=== PATIENT | female | born 1990 | race Caucasian/White ===

== ENCOUNTER 2025-01-02 14:21 | Outpatient (AMB) | payer OTHER, SELFPAY ==
--- NOTE | 2025-01-02 14:22 | A.OFFPC_ITS ---
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 she will like a STI and lab work. 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 Accompanied by: Self / Same As Patient Allergies No Known Allergies Allergy (Verified 01/02/25 14:23) Tobacco use date assessed: 01/02/25 Dental Screening Dental Screen Date: 01/02/25 Did you have a dental visit in the last 12 months?: Yes Did you have a dental problem in the last 6 months where you did not have access to dental care?: No Was dental information given to patient?: Patient has dentist HPI HPI Comments 2 History of Present Illness0 Details 34-year-old female comes in to establish care she works at her [employer] She has no acute complaints she suffers from anxiety she used to take alprazolam 0.5 mg last time she took the medication was in March of 2024 Mass pat was reviewed which showed evidence of medication usage As per patient she saw a psychiatrist and received CBT she is interested in starting therapy again We discussed trialing a SSRI for her anxiety patient is amendable to trial discussed bridging over with benzodiazepine She denies suicidal ideation or attempt and homicidal ideation and attempt She is a single parent and feels that she has a large load on her shoulders She also complains of feeling a mass on her upper back, discuss obtaining an ultrasound of soft tissue patient agrees She wants to check her thyroid hormone since she verbalizes that it was abnormal on her last exam but her primary care doctor never addressed it She does say she feels tired constipated cold, will order TSH reflex to T4 and discuss results and plan when the time comes She is sexually active and requests a STI screen She has a history of smoking she smokes 6 cigarettes a day She is interested in quitting we discussed starting the patch and using gum whenever she gets cravings She agrees with the plan She also mentioned she had a Pap smear 2 years ago she is not sure if she has to repeat in 2 or 5 years [facility] Family History (Updated 01/02/25 @ 14:34 by Liam Ocasio MA) Father No problems noted. Mother High blood pressure Fibromyalgia Hypothyroidism Social History Housing: Apartment Alcohol intake: current Alcohol intake frequency: holidays/special occasions only Patient Tobacco Use Status: Current everyday Tobacco user Tobacco use type: Cigarette Cigarettes Per Day: 6 service: No Current occupational status: employed Cognitive needs: No Hearing needs: No Vision needs: No Questionnaire PHQ-9 Over the last 2 weeks, how often have you been bothered by any of the following problems? 1. Little interest or pleasure in doing things: more than half the days 2. Feeling down, depressed, or hopeless: several days 3. Trouble falling or staying asleep, or sleeping too much: nearly every day 4. Feeling tired or having little energy: more than half the days 5. Poor appetite or overeating: several days 6. Feeling bad about yourself - or that you are a failure or have let yourself or your family down: several days 7. Trouble concentrating on things, such as reading the newspaper or watching television: nearly every day 8. Moving or speaking so slowly that other people could have noticed. Or the opposite - being so fidgety or restless that you have been moving around a lot more than usual: several days 9. Thoughts that you would be better off or of hurting yourself in some way: not at all Total score: 14 Depression Screening Interpretation: Positive Depression Screening Done: Yes 30813 - PHQ-9 Billing: Yes Source: Developed by Drs. Raj Monzon, Aan Hernandez, Angel Gibson and colleagues, with an educational giuseppe from [employer]. Thrive Questionnaire Date Thrive assessed: 01/02/25 I am a: Patient What is your living situation today?: I have a steady place to live Within the past 12 months, did the food you bought not last and you didn't have the money to get more?: Never true Within the past 12 months, did you worry whether your food would run out before you got money to buy more?: Never true Do you have trouble paying for medicines?: No Do you have trouble getting transportation to medical appointments?: No Do you have trouble paying your heating and electricity bill?: No Do you have trouble taking care of your child, family member or friend?: No Do you have trouble with day-to-day activities such as bathing, preparing meals, shopping, managing finances, etc.?: No Are you currently unemployed and looking for a job?: No Are you interested in more education?: No Please select the resources that you would like help with: None Currently or been in a relationship where the following occur: No concerns reported THRIVE Score: 0 AUDIT C Alcohol Use Questionnaire (AUDIT-C) 1. How often do you have a drink containing alcohol?: Monthly or less 2. How many drinks containing alcohol do you have on a typical day when you are drinking?: 1 or 2 3. How often do you have six or more drinks on one occasion?: Never Total Score: 1 BERT-7 AMB Questionnaire BERT-7 Date BERT - 7 assessed: 01/02/25 Feeling nervous, anxious, or on edge: 3 = Nearly every day Not being able to stop or control worryin = Nearly every day Worrying too much about different things: 3 = Nearly every day Trouble relaxin = More than half the days Being so restless that it is hard to sit still: 3 = Nearly every day Becoming easily annoyed or irritable: 3 = Nearly every day Feeling afraid as if something awful might happen: 3 = Nearly every day Total BERT-7 score (0-4 normal; 5-9 mild; 10-14 moderate; 15-21 severe): 20 Source: Developed by Drs. Raj Monzon, Ana Hernandez, Angel Gibson and colleagues, with an educational giuseppe from [employer] Review of Systems Const Details: 10-point ROS reviewed and negative except as noted in HPI. Physical exam (Primary Care) 25.3 BMI Assessment/Plan discussion: High Tobacco/Smoking Status: Tobacco use Status Tobacco use date assessed 01/02/25 01/02/25 14:26 Patient Tobacco Use Status Never used Tobacco 01/02/25 14:26 Are you ready to quit: Yes Tobacco cessation counseling provided: Yes Relapse Prevention: discussed the importance of a supportive environment, discussed negative mood or depression after quitting, weight gain after smoking is common and discussed dietary, exercise and/or lifestyle changes Number of minutes spent counselin CPT code: 09174 - 4-10 Minutes PHQ-9: PHQ-9 Score PHQ-9: Total score 0 01/02/25 14:26 Depression Screening Interpretation: Positive Thrive Assessment: Date of Thrive Assessment Date Thrive assessed 01/02/25 01/02/25 14:26 Currently or been in a relationship where the following occur: No concerns reported Const Other: * Gen: NAD, A&O x3 * HEENT: NC/AT, PERRLA, EOMI, OP clear, MMM * Neck: Supple, no LAD/JVD/bruit * COR: RRR, S1 S2, no m/r/g * Lungs: CTAB, BS equal bilat, no r/r/w * Abd: NT/ND, +BS, no HSM, no mass/rebound/guarding * Ext: No CCE, 2+ pulses * Neuro: CN II?XII grossly intact, motor/sensory intact, reflexes 2+, gait normal * Skin: WDI, no rash mass on upper back 1x1cm Back/Spine/Pelvis Back/spine/pelvis image: 2 1. Coding Level of Care Code New Pt Level 3 (31696) Diagnoses Regular check-up Z00.00 Routine lab draw Z01.89 Screening for diabetes mellitus Z13.1 Encounter for screening, unspecified Z13.9 Other specified counseling Z. Exercise counseling Z71.82 Nicotine dependence F17.200 Moderate major depression F32.1 Excess ear wax H61.20 Mass on back R22.2 Additional Codes PHQ-9 - 11609 - PHQ-9 Billing: Yes ([id number]) Vital Signs *Quality* - CPT code: 46747 - 4-10 Minutes ([id number]) Assessment & Plan Assessment & Plan (1) Regular check-up: Code(s): Z00.00 - Encounter for general adult medical examination without abnormal findings (2) Routine lab draw: Code(s): Z01.89 - Encounter for other specified special examinations (3) Screening for diabetes mellitus: Code(s): Z13.1 - Encounter for screening for diabetes mellitus (4) Encounter for screening, unspecified: Code(s): Z13.9 - Encounter for screening, unspecified (5) Other specified counseling: Code(s): Z71.89 - Other specified counseling (6) Exercise counseling: Code(s): Z71.82 - Exercise counseling (7) Nicotine dependence: Code(s): F17.200 - Nicotine dependence, unspecified, uncomplicated Category: Medical (8) Moderate major depression: Code(s): F32.1 - Major depressive disorder, single episode, moderate Category: Medical (9) Excess ear wax: Code(s): H61.20 - Impacted cerumen, unspecified ear (10) Mass on back: Code(s): R22.2 - Localized swelling, mass and lump, trunk Plan routine labs for screening major depression no risk of si/sa or hi/rodriguez will start escitalopram 10mg and bridge c benzodiazepine rtc in 2 weeks for f/u, [facility] referral ordered mass on upper back--> us soft tissue , most likely lipoma cerumen in bilat ears -->debrox and hygiene instructions provided 4 min nicotine dep--> start nicotine patch with gum Smoking Cessation Counseling ? Provided smoking cessation counseling (5 minutes). Reviewed health risks (CV, pulmonary, cancer) and benefits of quitting. * Assessed readiness: patient ready * Discussed options: behavioral strategies (quit date, trigger avoidance, support resources) and pharmacotherapy (NRT, bupropion, varenicline). * Offered quitline: [phone]. Patient accepted quit plan; follow-up arranged. Orders: Orders 2 Complete Blood Count Auto Diff Today Z00.00 - Encounter for general adult medical examination without abnormal findings, Z13.1 - Encounter for screening for diabetes mellitus, Z13.9 - Encounter for screening, unspecified Comprehensive Met. Panel Today Z00.00 - Encounter for general adult medical examination without abnormal findings, Z13.1 - Encounter for screening for diabetes mellitus, Z13.9 - Encounter for screening, unspecified Lipid Panel Today Z00.00 - Encounter for general adult medical examination without abnormal findings, Z13.1 - Encounter for screening for diabetes mellitus, Z13.9 - Encounter for screening, unspecified Chlamydia Species Ab Panel Today Z00.00 - Encounter for general adult medical examination without abnormal findings, Z13.1 - Encounter for screening for diabetes mellitus HIV Ab/Ag Today Z00.00 - Encounter for general adult medical examination without abnormal findings, Z13.1 - Encounter for screening for diabetes mellitus Hepatitis B Surface Antigen Today Z00.00 - Encounter for general adult medical examination without abnormal findings, Z13.1 - Encounter for screening for diabetes mellitus US chest Today R22.2 - Localized swelling, mass and lump, trunk, Z00.00 - Encounter for general adult medical examination without abnormal findings, Z13.1 - Encounter for screening for diabetes mellitus Hemoglobin A1c Today Z00.00 - Encounter for general adult medical examination without abnormal findings, Z13.1 - Encounter for screening for diabetes mellitus, Z13.9 - Encounter for screening, unspecified TSH reflex Free T4 Today Z00.00 - Encounter for general adult medical examination without abnormal findings, Z13.1 - Encounter for screening for diabetes mellitus, Z13.9 - Encounter for screening, unspecified CT NG by PCR Urine Today Z00.00 - Encounter for general adult medical examination without abnormal findings, Z13.1 - Encounter for screening for diabetes mellitus Hepatitis C Antibody Today Z00.00 - Encounter for general adult medical examination without abnormal findings, Z13.1 - Encounter for screening for diabetes mellitus Hepatitis B Surface Antibody Today Z00.00 - Encounter for general adult medical examination without abnormal findings, Z13.1 - Encounter for screening for diabetes mellitus Referrals 2 Behavioral Health Referral Z00.00 - Encounter for general adult medical examination without abnormal findings, Z13.1 - Encounter for screening for diabetes mellitus Medications: New 2 escitalopram oxalate 10 mg PO DAILY 30 tabs 0RF alprazolam 0.5 mg PO DAILY 10 tabs 0RF anxiety nicotine 1 patch transdermal Q24H 14 ea 4RF nicotine (polacrilex) 2 mg buccal Q2H 20 ea 0RF carbamide peroxide 6.5% (Debrox) 5 drps otic (ears) Q12H 15 mL 0RF 4 days
[2025-01-02 14:38] VITALS: BP 98/68; PULSE 84; RESP 16; TEMP 36.6; O2SAT 97; BMI 25.3
--- OUTSIDE RECORDS SUMMARY | 2025-01-02 15:41 | XMS_ITS | Patient Health Record ---
Author Organization [employer] Address [address] [place], [place] [phone] Support Name Relationship Address Phone FINN VICK Guarantor Unknown Unavailable Reason For Referral No Information Plan Of Treatment No Information Insurance Providers Payer Name Payer Address Payer Phone Subscriber Number Group Number Insured Name Patient Relationship to Insured Coverage Start Date Coverage End Date [facility] and [facility] [address] [place], [place] [id number] NAVA FINN Self - patient is the insured
== END 2025-01-02 15:24 | disposition home or self-care (01) ==
LOC: HO.HMCFMS 14:21
PROVIDERS: PCP Student in an Organized Health Care Education/Training Program; Visit Provider Student in an Organized Health Care Education/Training Program
DX: Z00.00 Encounter for general adult medical examination without abnormal findings (principal); R22.2 Localized swelling, mass and lump, trunk; H61.23 Impacted cerumen, bilateral; F32.1 Major depressive disorder, single episode, moderate; F17.200 Nicotine dependence, unspecified, uncomplicated; Z13.1 Encounter for screening for diabetes mellitus; Z13.9 Encounter for screening, unspecified; Z71.89 Other specified counseling; Z71.82 Exercise counseling

== ENCOUNTER → 2025-01-02 14:21 | Outpatient (BNVA) | payer MEDICARE, SELFPAY | PROVIDERS: Visit Provider Student in an Organized Health Care Education/Training Program | DX: Z00.00 Encounter for general adult medical examination without abnormal findings (principal); F32.1 Major depressive disorder, single episode, moderate; H61.20 Impacted cerumen, unspecified ear; R22.2 Localized swelling, mass and lump, trunk; F41.9 Anxiety disorder, unspecified; F17.210 Nicotine dependence, cigarettes, uncomplicated; Z79.899 Other long term (current) drug therapy; Z13.31 Encounter for screening for depression; Z13.39 Encounter for screening examination for other mental health and behavioral disorders; Z71.82 Exercise counseling | CPT/HCPCS: 96127; 99385 ==

== ENCOUNTER 2025-01-03 07:32 | Outpatient (REF) | payer MEDICARE, SELFPAY ==
--- OUTSIDE RECORDS SUMMARY | 2019-07-14 20:00 | XMS_ITS | Continuity of Care Document ---
Author Organization [facility] As sociates Address [address] [place] [address] Phone Care Team Providers Care Residential Counselor Name Role Phone MD LARSEN JEFFREY Unavailable Unavailable Advance Directives Directive Yes / No Effective Date File Name No Information Encounters Encounter Description Practice Location Reason(s) For Visit Diagnoses Date Provider Providers Copied on Encounter [facility], [address], [place], [place], [id number], [place] tel:[phone] [facility] OUTPATIENT No Information MD GAVIOTA LARSEN. [address], [place], [place], [id number] , [place]. tel:[phone] Referring Provider: SILVIA FRANCO, [address] [place] [address], [address]. tel:[phone] Family History Family Member Type Diagnosis Age At Onset No Information Payers Payer name Insurance type Covered democrat ID Authoriza tilisa(s) [facility] [id number] [facility] [id number] Social History Type Description Quantity Date Captured Comments Sex Female Smoking Status No Information Chief Complaint And Reason For Visit No Information History Of Present Illness Encounter Date Complaint History Of Prese nt Illness No Information Instructions Date Instruction Additional Infor mation No Information Assessments Type Assessment Date No Information
--- OUTSIDE RECORDS SUMMARY | 2025-01-03 07:34 | XMS_ITS | Patient Health Record ---
Author Organization [employer] Address [address] [place], [place] [id number] Support Name Relationship Address Phone FINN VICK Guarantor Unknown Unavailable Reason For Referral No Information Plan Of Treatment No Information Insurance Providers Payer Name Payer Address Payer Phone Subscriber Number Group Number Insured Name Patient Relationship to Insured Coverage Start Date Coverage End Date [facility] and [facility] [address] [place], [place] [id number] [phone] [id number] NAVA FINN Self - patient is the insured
[2025-01-03 10:50] LABS: MANUAL DIFF FLAG NO
[2025-01-03 10:56] LABS: Hematocrit 40.1 % (37.0-47.0); Hemoglobin 13.1 g/dl (12.0-16.0); Imm Gran Abs Auto 0.02 X10*3/uL (0.00-0.03); Imm Gran Pct Auto 0.3 % (0.0-0.4); Lymphocytes Absolute Auto 2.1 X10*3/uL (1.2-4.9); Mean Corpuscular HGB Conc 32.7 g/dl (31.0-35.0); Mean Corpuscular Hemoglobin 29.7 pg (27.0-33.0); Mean Corpuscular Volume 90.9 fL (80.0-98.0); NRBC Abs Auto 0.000 X10*3/uL (0.0-0.012); NRBC Pct Auto 0.0 /100WBC (0.0-0.2); Platelet Count 250 X10*3/uL (160-400); Red Blood Count 4.41 X10*6/uL (4.20-5.50); White Blood Count 7.8 X10*3/uL (4.8-10.8)
[2025-01-03 11:06] LABS: Hemoglobin A1C 121.3026 umol/L; Total Hemoglobin (HGBA1C) 3337.1833 umol/L
[2025-01-03 11:10] LABS: Alanine Aminotransferase 23 U/L (0-31); Albumin Level 4.4 g/dL (3.5-5.0); Alkaline Phosphatase 69 U/L (39-117); Anion Gap 11 (12-20); Aspartate Amino Transferase 22 U/L (5-31); Blood Urea Nitrogen 20 mg/dL (9-16); Calcium 8.7 mg/dL (8.4-10.2); Carbon Dioxide 25 mmol/L (22-29); Chloride 106 mmol/L (96-108); Cholesterol 192 mg/dL (<200); Estimated Glomerular Filt Rate > 60; HDL Cholesterol 55 mg/dL (>40); Potassium 4.3 mmol/L (3.3-5.1); Sodium 138 mmol/L (135-145); Total Protein 7.2 g/dL (6.5-8.0); Triglycerides 71 mg/dL (<150)
[2025-01-03 11:41] LABS: HBS Num1 > 1000.00 mIU/mL (0-7.99); HBsAGNum1 0.35 S/CO (0.00-0.99); HIV Num 1 0.06 S/CO (0.00-0.99); Hepatitis B Surface Antigen Negative (Negative); ~HepC Num1 0.12 S/CO (0.00-0.79); ~Hepatitis B Surface Antibody REACTIVE (Nonreactive); ~Hepatitis C Antibody Nonreactive (Nonreactive)
[2025-01-03 12:34] LABS: CT PCR Urine NOT DETECTED (Not Detect.); NG PCR Urine NOT DETECTED (Not Detect.)
[2025-01-11 12:13] LABS: Chlamydia Trachomatis IgA <1:16 titer (<1:16); Chlamydia Trachomatis Interp. Past Infection
== END 2025-01-03 07:33 | disposition home or self-care (01) ==
LOC: HO.10HDL 07:32
PROVIDERS: Visit Provider Student in an Organized Health Care Education/Training Program
DX: Z00.00 Encounter for general adult medical examination without abnormal findings (principal); Z13.1 Encounter for screening for diabetes mellitus; Z13.6 Encounter for screening for cardiovascular disorders; Z20.2 Contact with and (suspected) exposure to infections with a predominantly sexual mode of transmission
CPT/HCPCS: 80053; 80061; 83036; 84443; 85025; 86631; 86632; 86706; 86803; 87340; 87389; 87491; 87591

== ENCOUNTER 2025-01-15 15:51 | Outpatient (REF) | payer OTHER, SELFPAY ==
--- NOTE | ~2025-01-15 | US_ITS ---
EXAMINATION: US CHEST CLINICAL INFORMATION: Localized mass or swelling involving the upper back COMPARISON: None available. TECHNIQUE: Grayscale and color Doppler imaging was performed in the region of the mass in the posterior mid back FINDINGS: There is a well-defined mass in the superficial subcutaneous soft tissues of the posterior mid thigh, left that measures 16 x 9 x 12 mm (CC by AP by transverse). Margins are not clearly differentiated from subcutaneous lobulations of adipose tissue. The cephalad margin is more distinct. The mass is possibly as large as 25 x 10 x12 mm. On longitudinal imaging, the region appears more masslike, but on transverse imaging it is ill-defined. US/US chest IMPRESSION: Possible mass in the posterior left upper back. Ultrasound is inadequate for characterizing soft tissue masses outside of the breast. The standard imaging modality for characterizing musculoskeletal masses is MRI. Electronically signed by: Obie Garza MD 01/15/2025 05:14 PM EDT
--- OUTSIDE RECORDS SUMMARY | 2025-01-15 19:08 | XMS_ITS | Patient Health Record ---
Author Organization [employer] Address [address] [place], [place] [phone] Support Name Relationship Address Phone FINN VICK Guarantor Unknown Unavailable Reason For Referral No Information Plan Of Treatment No Information Insurance Providers Payer Name Payer Address Payer Phone Subscriber Number Group Number Insured Name Patient Relationship to Insured Coverage Start Date Coverage End Date [facility] and [facility] [address] [place], [place] [phone] [id number] NAVA FINN Self - patient is the insured
== END 2025-01-15 15:52 | disposition home or self-care (01) ==
LOC: HO.US 15:51
PROVIDERS: PCP Student in an Organized Health Care Education/Training Program; Visit Provider Student in an Organized Health Care Education/Training Program
DX: Z00.00 Encounter for general adult medical examination without abnormal findings (principal); Z13.1 Encounter for screening for diabetes mellitus; R22.2 Localized swelling, mass and lump, trunk
CPT/HCPCS: 76604

== ENCOUNTER → 2025-01-15 15:55 | Outpatient (BNV) | payer OTHER, SELFPAY | PROVIDERS: PCP Student in an Organized Health Care Education/Training Program; Visit Provider Radiology Diagnostic Radiology | DX: R22.2 Localized swelling, mass and lump, trunk (principal) | CPT/HCPCS: 76604 ==

== ENCOUNTER 2025-01-16 11:21 | Outpatient (AMB) | payer OTHER, SELFPAY ==
--- NOTE | 2025-01-16 11:24 | MHC.PC.OV ---
Vital Signs 01/16/25 11:29 Height 5 ft 2.3 in Weight 138 lb 8 oz BMI 25.1 BP 100/70 Blood Pressure Location Rt brachial Position Sitting Respiration 16 Pulse 86 Pulse Source Pulse Oximeter Temp 98.3 F Temp Source Oral Pulse Oximetry (%) 99 Oxygen Delivery Method Room Air Intake Visit Reasons: 2 week follow up Intake Note: she here for anxiety pt have meds for anxiety and also here for a physical. she will like a STI and lab work. Quality Assurance Calibrator Required: No Accompanied by: Self / Same As Patient Allergies No Known Allergies Allergy (Verified 01/16/25 11:28) Tobacco use date assessed: 01/02/25 Dental Screening Dental Screen Date: 01/02/25 Did you have a dental visit in the last 12 months?: Yes Did you have a dental problem in the last 6 months where you did not have access to dental care?: No Was dental information given to patient?: Patient has dentist HPI HPI Comments History of Present Illness Details History of Present Illness The patient is a 34-year-old female presenting for a follow-up on medication efficacy and management of hyperlipidemia. Hyperlipidemia: - The patient's LDL cholesterol level is elevated at 123 mg/dL, above the recommended level of 100 mg/dL. - Dietary habits include consumption of eggs and cheese, with advice to reduce egg intake. - The patient uses an air fryer for cooking to minimize fat intake. Earwax buildup: - The patient experiences difficulty with insurance coverage for Debrox, a medication for earwax removal. - Alternative home remedy includes using warm water in the shower to help clear earwax. Health Maintenance - LDL cholesterol management: Advised to reduce egg intake and monitor dietary habits. Review of Systems - Gastrointestinal: Reports mild stomach discomfort. - Ear/Nose/Throat: Reports difficulty with earwax removal. 10-point ROS reviewed and negative except as noted in HPI Past Medical History - Past chlamydia infection, resolved. Physical Exam General: Well-appearing, in no acute distress. Vital signs: Within normal limits. HEENT: Normocephalic, atraumatic. PERRLA, EOMI. Conjunctiva clear, sclera anicteric. Oropharynx clear, mucous membranes moist. TMs intact bilaterally. Neck: Supple, no lymphadenopathy, no thyromegaly, no JVD or carotid bruits. Cardiovascular: RRR, normal S1/S2, no murmurs, rubs, or gallops. Peripheral pulses 2+ and symmetric. No edema. Respiratory: Lungs clear to auscultation bilaterally, no wheezes, rales, or rhonchi. Normal effort. Abdomen: Soft, non-tender, non-distended. Normoactive bowel sounds. No hepatosplenomegaly, no masses. MSK: Full range of motion, no joint swelling or deformity. Normal gait. Skin: Warm, dry, intact. No rashes, lesions, or pallor. Neuro: Alert and oriented x3. Cranial nerves II-XII intact. Strength 5/5 throughout. Sensation intact. Reflexes 2+ symmetric. Normal coordination and gait. Psych: Appropriate mood and affect. Normal judgment and insight. Discussion Notes I discussed with the patient the importance of managing LDL cholesterol levels and advised dietary modifications, including reducing egg consumption. We also reviewed alternative methods for earwax removal due to insurance issues with Debrox coverage. Plan 1. Hyperlipidemia, unspecified E78.5 - Plan includes dietary modifications to reduce LDL cholesterol, specifically reducing egg intake. 2. Earwax Buildup - Plan includes using warm water in the shower to assist with earwax removal due to insurance issues with Debrox. Patient Instructions - Reduce egg consumption to help lower LDL cholesterol. - Use warm water in the shower to help with earwax removal. [facility] Family History Father No problems noted. Mother High blood pressure Fibromyalgia Hypothyroidism Social History Housing: Apartment Alcohol intake: current Alcohol intake frequency: holidays/special occasions only Patient Tobacco Use Status: Current everyday Tobacco user Tobacco use type: Cigarette Cigarettes Per Day: 6 service: No Current occupational status: employed Cognitive needs: No Hearing needs: No Vision needs: No Questionnaire PHQ-9 Over the last 2 weeks, how often have you been bothered by any of the following problems? 1. Little interest or pleasure in doing things: several days 2. Feeling down, depressed, or hopeless: several days 3. Trouble falling or staying asleep, or sleeping too much: several days 4. Feeling tired or having little energy: several days 5. Poor appetite or overeating: more than half the days 6. Feeling bad about yourself - or that you are a failure or have let yourself or your family down: several days 7. Trouble concentrating on things, such as reading the newspaper or watching television: more than half the days 8. Moving or speaking so slowly that other people could have noticed. Or the opposite - being so fidgety or restless that you have been moving around a lot more than usual: not at all 9. Thoughts that you would be better off or of hurting yourself in some way: not at all Total score: 9 Depression Screening Interpretation: Positive Depression Screening Done: Yes Source: Developed by Drs. Raj Monzon, Ana Hernandez, Angel Gibson and colleagues, with an educational giuseppe from [employer]. Thrive Questionnaire Date Thrive assessed: 01/02/25 I am a: Patient What is your living situation today?: I have a steady place to live Within the past 12 months, did the food you bought not last and you didn't have the money to get more?: I choose not to answer this question Within the past 12 months, did you worry whether your food would run out before you got money to buy more?: I choose not to answer this question Do you have trouble paying for medicines?: I choose not to answer this question Do you have trouble getting transportation to medical appointments?: I choose not to answer this question Do you have trouble paying your heating and electricity bill?: I choose not to answer this question Do you have trouble taking care of your child, family member or friend?: I choose not to answer this question Are you currently unemployed and looking for a job?: I choose not to answer this question Are you interested in more education?: I choose not to answer this question Please select the resources that you would like help with: None Currently or been in a relationship where the following occur: I choose not to answer THRIVE Score: 0 AUDIT C Alcohol Use Questionnaire (AUDIT-C) 1. How often do you have a drink containing alcohol?: 2-4 times a month Total Score: 2 BERT-7 AMB Questionnaire BERT-7 Date BERT - 7 assessed: 01/02/25 Feeling nervous, anxious, or on edge: 1 = Several days Not being able to stop or control worryin = More than half the days Worrying too much about different things: 2 = More than half the days Trouble relaxin = More than half the days Being so restless that it is hard to sit still: 2 = More than half the days Becoming easily annoyed or irritable: 2 = More than half the days Feeling afraid as if something awful might happen: 2 = More than half the days Total BERT-7 score (0-4 normal; 5-9 mild; 10-14 moderate; 15-21 severe): 13 Source: Developed by Drs. Raj Monzon, Ana Hernandez, Angel Gibson and colleagues, with an educational giuseppe from [employer]. Physical exam (Primary Care) Vital Signs: Last Vital Signs Temp 98.3 F 01/16/25 11:29 Pulse 86 01/16/25 11:29 Resp 16 01/16/25 11:29 BP 100/70 01/16/25 11:29 Pulse Ox 99 01/16/25 11:29 Oxygen Delivery Method Room Air 01/16/25 11:29 BMI result Body Mass Index 25.1 Tobacco/Smoking Status: Tobacco use Status Tobacco use date assessed 01/02/25 01/16/25 11:27 Patient Tobacco Use Status Current everyday Tobacco 01/16/25 11:27 Tobacco use type Cigarette 01/16/25 11:27 PHQ-9: PHQ-9 Score PHQ-9: Total score 9 01/16/25 11:27 Depression Screening Interpretation: Positive Thrive Assessment: Date of Thrive Assessment Date Thrive assessed 01/02/25 01/16/25 11:27 Currently or been in a relationship where the following occur: I choose not to answer Coding Level of Care Code Est Pt Level 3 (65707) Diagnoses Hyperlipidemia E78.5 Moderate major depression F32.1 Nicotine dependence F17.200 Cerumen in auditory canal on examination H61.20 Assessment & Plan Assessment & Plan (1) Hyperlipidemia: Code(s): E78.5 - Hyperlipidemia, unspecified (2) Moderate major depression: Code(s): F32.1 - Major depressive disorder, single episode, moderate Category: Medical (3) Nicotine dependence: Code(s): F17.200 - Nicotine dependence, unspecified, uncomplicated Category: Medical (4) Cerumen in auditory canal on examination: Code(s): H61.20 - Impacted cerumen, unspecified ear Plan
[2025-01-16 11:29] VITALS: BP 100/70; PULSE 86; RESP 16; TEMP 36.8; O2SAT 99; BMI 25.1
--- OUTSIDE RECORDS SUMMARY | 2025-01-16 13:38 | XMS_ITS | Patient Health Record ---
Author Organization [id number] Address [address], [place] [id number] Support Name Relationship Address Phone FINN VICK Guarantor Unknown Unavailable Reason For Referral No Information Plan Of Treatment No Information Insurance Providers Payer Name Payer Address Payer Phone Subscriber Number Group Number Insured Name Patient Relationship to Insured Coverage Start Date Coverage End Date [facility] [address] [place], [place] [phone] [id number] NAVA FINN Self - patient is the insured
== END 2025-01-16 11:46 | disposition home or self-care (01) ==
LOC: HO.HMCFMS 11:22
PROVIDERS: Visit Provider Student in an Organized Health Care Education/Training Program
DX: E78.5 Hyperlipidemia, unspecified (principal); F32.1 Major depressive disorder, single episode, moderate; F17.200 Nicotine dependence, unspecified, uncomplicated

== ENCOUNTER 2025-02-03 13:53 | Outpatient (AMB) | payer MEDICARE, SELFPAY ==
[2025-02-03 13:58] VITALS: BP 119/72; PULSE 79; RESP 20; TEMP 36.6; O2SAT 97; BMI 25.9
--- NOTE | 2025-02-03 13:58 | A.OFFPC_ITS ---
Vital Signs 02/03/25 13:58 Height 5 ft 2.3 in Weight 143 lb 4 oz BMI 25.9 BP 119/72 Blood Pressure Location Rt brachial Position Sitting Respiration 20 Pulse 79 Pulse Source Pulse Oximeter Temp 97.8 F Temp Source Temporal Artery Scan Pulse Oximetry (%) 97 Oxygen Delivery Method Room Air Intake Visit Reasons: 1 month follow Intake Note: she here for anxiety pt have meds for anxiety and also here for a physical. she will like a STI and lab work. Band Top Maker Required: No Accompanied by: Daughter Allergies No Known Allergies Allergy (Verified 01/16/25 11:28) Tobacco use date assessed: 02/03/25 Dental Screening Dental Screen Date: 02/03/25 Did you have a dental visit in the last 12 months?: No Did you have a dental problem in the last 6 months where you did not have access to dental care?: No HPI HPI Comments 2 History of Present Illness Details History of Present Illness The patient is a 34-year-old female presenting with anxiety and a mass on her midback Anxiety: - The patient experiences significant fa tigue due to her current medication, impacting her post-work activities. - She is a single mother, which adds to the challenge of managing fatigue. - The medication has been taken for four weeks, with full effects expected in four to six weeks. mass: - A well-defined mass in the posterior m id back was identified, suspected to be a lipoma. - Ultrasound results were inconclusive, prompting an MRI recommendation. Review of Systems - General: Reports fatigue after work. - Psychiatric: Reports anxiety, denies d epression. 10-point ROS reviewed and negative excep t as noted in HPI Past Medical History Health Maintenance Physical Exam General: Well-appearing, in no acute distress. Vital signs: Within normal limits. HEENT: Normocephalic, atraumatic. PERRLA, EOMI. Conjunctiva clear, sclera anicteric. Oropharynx clear, mucous membranes moist. TMs intact bilaterally. Neck: Supple, no lymphadenopathy, no thyromegaly, no JVD or carotid bruits. Cardiovascular: RRR, normal S1/S2, no murmurs, rubs, or gallops. Peripheral pulses 2+ and symmetric. No edema. Respiratory: Lungs clear to auscultation bilaterally, no wheezes, rales, or rhonchi. Normal effort. Abdomen: Soft, non-tender, non-distended. Normoactive bowel sounds. No hepatosplenomegaly, no masses. MSK: Full range of motion, no joint swelling or deformity. Normal gait. Skin: Warm, dry, intact. No rashes, lesions, or pallor. Neuro: Alert and oriented x3. Cranial nerves II-XII intact. Strength 5/5 throughout. Sensation intact. Reflexes 2+ symmetric. Normal coordination and gait. Psych: Appropriate mood and affect. Normal judgment and insight. Reports feeling tired, likely due to medication side effects. Discussed potential medication switch if fatigue persists. Plan 1. Anxiety - Continue current medication for two mo re weeks to evaluate full effects; consider switching to Wellbutrin if fatigue persists. 2. Lipoma - Schedule an MRI for further evaluation due to inconclusive ultrasound results. Discussion Notes During the visit, we discussed the patient's current medication for anxiety and its side effects, particularly fatigue. I advised her to continue the medication for another two weeks to allow full effects to manifest. We also considered Wellbutrin as an alternative if fatigue remains an issue. Regarding the lipoma, the ultrasound results were inconclusive, so I recommended an MRI for further evaluation. The patient will be contacted to schedule the MRI. Patient was informed and verbally consented to the use of an ambient scribe for clinic note documentation during this visit. Patient Instructions - Continue current medication for anxiet y for two more weeks. - Monitor fatigue levels and report if i t persists. - Await contact for MRI scheduling and a ttend the appointment. Total time spent caring for the patient today was 30 minutes. This includes time spent before the visit reviewing the chart, time spent documenting, and time spent reviewing laboratory results, diagnostic imaging, medications, performing a medically necessary evaluation, counseling on diagnoses, care coordination, ordering appropriate tests, reporting test results with the patient. [facility] Medical History (Updated 02/03/25 @ 14:21 by Daniel Bazzi MD) Mass on back Family History Father No problems noted. Mother High blood pressure Fibromyalgia Hypothyroidism Social History Housing: Apartment Alcohol intake: current Alcohol intake frequency: holidays/special occasions only Patient Tobacco Use Status: Current everyday Tobacco user Tobacco use type: Cigarette Cigarettes Per Day: 6 service: No Current occupational status: employed Cognitive needs: No Hearing needs: No Vision needs: No Questionnaire PHQ-9 Over the last 2 weeks, how often have you been bothered by any of the following problems? 1. Little interest or pleasure in doing things: several days 2. Feeling down, depressed, or hopeless: several days 3. Trouble falling or staying asleep, or sleeping too much: several days 4. Feeling tired or having little energy: several days 5. Poor appetite or overeating: more than half the days 6. Feeling bad about yourself - or that you are a failure or have let yourself or your family down: several days 7. Trouble concentrating on things, such as reading the newspaper or watching television: more than half the days 8. Moving or speaking so slowly that other people could have noticed. Or the opposite - being so fidgety or restless that you have been moving around a lot more than usual: not at all 9. Thoughts that you would be better off or of hurting yourself in some way: not at all Total score: 9 Depression Screening Interpretation: Positive Depression Screening Done: Yes Source: Developed by Drs. Raj Monzon, Ana Hernandez, Angel Gibson and colleagues, with an educational giuseppe from [employer]. Thrive Questionnaire Date Thrive assessed: 02/03/25 I am a: Patient What is your living situation today?: I have a steady place to live Within the past 12 months, did the food you bought not last and you didn't have the money to get more?: I choose not to answer this question Within the past 12 months, did you worry whether your food would run out before you got money to buy more?: I choose not to answer this question Do you have trouble paying for medicines?: I choose not to answer this question Do you have trouble getting transportation to medical appointments?: I choose not to answer this question Do you have trouble paying your heating and electricity bill?: I choose not to answer this question Do you have trouble taking care of your child, family member or friend?: I choose not to answer this question Do you have trouble with day-to-day activities such as bathing, preparing meals, shopping, managing finances, etc.?: No Are you currently unemployed and looking for a job?: I choose not to answer this question Are you interested in more education?: I choose not to answer this question Please select the resources that you would like help with: None Currently or been in a relationship where the following occur: I choose not to answer THRIVE Score: 0 AUDIT C Alcohol Use Questionnaire (AUDIT-C) 1. How often do you have a drink containing alcohol?: 2-4 times a month Total Score: 2 BERT-7 AMB Questionnaire BERT-7 Date BERT - 7 assessed: 01/02/25 Feeling nervous, anxious, or on edge: 1 = Several days Not being able to stop or control worryin = More than half the days Worrying too much about different things: 2 = More than half the days Trouble relaxin = More than half the days Being so restless that it is hard to sit still: 2 = More than half the days Becoming easily annoyed or irritable: 2 = More than half the days Feeling afraid as if something awful might happen: 2 = More than half the days Total BERT-7 score (0-4 normal; 5-9 mild; 10-14 moderate; 15-21 severe): 13 Source: Developed by Drs. Raj Monzon, Ana Hernandez, Angel Gibson and colleagues, with an educational giuseppe from [employer]. Physical exam (Primary Care) Vital Signs: Last Vital Signs Temp 97.8 F 02/03/25 13:58 Pulse 79 02/03/25 13:58 Resp 20 02/03/25 13:58 BP 119/72 02/03/25 13:58 Pulse Ox 97 02/03/25 13:58 Oxygen Delivery Method Room Air 02/03/25 13:58 BMI result Body Mass Index 25.9 Tobacco/Smoking Status: Tobacco use Status Tobacco use date assessed 02/03/25 02/03/25 14:07 Patient Tobacco Use Status Current everyday Tobacco 02/03/25 14:00 Tobacco use type Cigarette 02/03/25 14:00 PHQ-9: PHQ-9 Score PHQ-9: Total score 9 02/03/25 14:07 Depression Screening Interpretation: Positive Thrive Assessment: Date of Thrive Assessment Date Thrive assessed 02/03/25 02/03/25 14:07 Currently or been in a relationship where the following occur: I choose not to answer Coding Level of Care Code Est Pt Level 4 (21108) Diagnoses Mass on back R22.2 Anxiety F41.9 Fatigue R53.83 Assessment & Plan Assessment & Plan (1) Mass on back: Code(s): R22.2 - Localized swelling, mass and lump, trunk Category: Medical (2) Anxiety: Code(s): F41.9 - Anxiety disorder, unspecified (3) Fatigue: Code(s): R53.83 - Other fatigue Plan Orders: Orders MR thoracic spine wo con Today R22.2 - Localized swelling, mass and lump, trunk
--- OUTSIDE RECORDS SUMMARY | 2025-02-03 16:20 | XMS_ITS | Patient Health Record ---
Author Organization [employer] Address [address], [place] [phone] Support Name Relationship Address Phone FINN VICK Guarantor Unknown Unavailable Reason For Referral No Information Plan Of Treatment No Information Insurance Providers Payer Name Payer Address Payer Phone Subscriber Number Group Number Insured Name Patient Relationship to Insured Coverage Start Date Coverage End Date [facility] [address] [place] [id number] NAVA FINN Self - patient is the insured
== END 2025-02-03 14:24 | disposition home or self-care (01) ==
LOC: HO.HMCFMS 13:53
PROVIDERS: PCP Student in an Organized Health Care Education/Training Program; Visit Provider Student in an Organized Health Care Education/Training Program
DX: R22.2 Localized swelling, mass and lump, trunk (principal); F41.9 Anxiety disorder, unspecified; R53.83 Other fatigue

== ENCOUNTER → 2025-02-03 13:53 | Outpatient (BNVA) | payer MEDICARE, SELFPAY | PROVIDERS: PCP Student in an Organized Health Care Education/Training Program; Visit Provider Student in an Organized Health Care Education/Training Program | DX: R22.2 Localized swelling, mass and lump, trunk (principal); F41.9 Anxiety disorder, unspecified; R53.83 Other fatigue; Z13.31 Encounter for screening for depression | CPT/HCPCS: 96127; 99212 ==

== ENCOUNTER 2025-02-21 08:47 | Outpatient (AMB) | payer OTHER, SELFPAY ==
[2025-02-21 08:49] VITALS: BP 110/64; PULSE 81; RESP 16; TEMP 36.6; O2SAT 100; BMI 26.3
--- NOTE | 2025-02-21 08:49 | A.OFFPC_ITS ---
Vital Signs 02/21/25 08:49 Height 5 ft 2.3 in Weight 145 lb BMI 26.3 BP 110/64 Blood Pressure Location Lt brachial Position Sitting Respiration 16 Pulse 81 Pulse Source Pulse Oximeter Temp 98 F Temp Source Oral Pulse Oximetry (%) 100 Oxygen Delivery Method Room Air Intake Visit Reasons: 2 week follow up Intake Note: she here for anxiety pt have meds for anxiety and also here for a physical. she will like a STI and lab work. 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 Anxiety: The patient reports experiencing significant anxiety, which is currently managed with alprazolam as needed. She expresses a preference to continue alprazolam until she can be seen by behavioral health specialists. The anxiety is described as severe enough to require medication, particularly on days with heightened stress. Fatigue: The patient reports persistent fatigue, which she attributes to the use of lexapro. She notes that the medication makes her excessively tired, leading to prolonged periods of sleep, such as sleeping all day on a Monday. A decision was made to reduce the escitalopram dosage from 10 mg to 5 mg to mitigate this side effect. Thoracic spine issue: The patient is scheduled for an MRI of the thoracic spine with and without contrast due to a bump in the area. The MRI is intended to assess the underlying cause of the thoracic spine issue. Medications: - escitalopram 10 mg, reduced to 5 mg fo r management of anxiety and to reduce fatigue. - Alprazolam, taken as needed for anxiet y management. Social History: - Employment: Reports positive changes a t work. Past Medical History Health Maintenance [facility] Medical History (Updated 02/03/25 @ 14:21 by Daniel Bazzi MD) Mass on back Family History Father No problems noted. Mother High blood pressure Fibromyalgia Hypothyroidism Social History Housing: Apartment Alcohol intake: current Alcohol intake frequency: holidays/special occasions only Patient Tobacco Use Status: Current everyday Tobacco user Tobacco use type: Cigarette Cigarettes Per Day: 6 service: No Current occupational status: employed Cognitive needs: No Hearing needs: No Vision needs: No Questionnaire Thrive Questionnaire Date Thrive assessed: 02/21/25 I am a: Patient What is your living situation today?: I have a steady place to live Within the past 12 months, did the food you bought not last and you didn't have the money to get more?: I choose not to answer this question Within the past 12 months, did you worry whether your food would run out before you got money to buy more?: I choose not to answer this question Do you have trouble paying for medicines?: I choose not to answer this question Do you have trouble getting transportation to medical appointments?: I choose not to answer this question Do you have trouble paying your heating and electricity bill?: I choose not to answer this question Do you have trouble taking care of your child, family member or friend?: I choose not to answer this question Do you have trouble with day-to-day activities such as bathing, preparing meals, shopping, managing finances, etc.?: No Are you currently unemployed and looking for a job?: I choose not to answer this question Are you interested in more education?: I choose not to answer this question Please select the resources that you would like help with: None Currently or been in a relationship where the following occur: I choose not to answer THRIVE Score: 0 AUDIT C Alcohol Use Questionnaire (AUDIT-C) 1. How often do you have a drink containing alcohol?: 2-4 times a month Total Score: 2 BERT-7 AMB Questionnaire BERT-7 Date BERT - 7 assessed: 02/21/25 Source: Developed by Drs. Raj Monzon, Ana Hernandez, Angel Gibson and colleagues, with an educational giuseppe from [employer]. Review of Systems Narrative Review of Systems - Psychiatric: Reports anxiety, denies other psychiatric symptoms. - General: Reports fatigue, denies other general symptoms. 10-point ROS reviewed and negative except as noted in HPI Physical exam (Primary Care) Vital Signs: Last Vital Signs Temp 98 F 02/21/25 08:49 Pulse 81 02/21/25 08:49 Resp 16 02/21/25 08:49 BP 110/64 02/21/25 08:49 Pulse Ox 100 02/21/25 08:49 Oxygen Delivery Method Room Air 02/21/25 08:49 BMI result Body Mass Index 26.3 Tobacco/Smoking Status: Tobacco use Status Tobacco use date assessed 02/21/25 02/21/25 08:55 Patient Tobacco Use Status Current everyday Tobacco 02/21/25 08:55 Tobacco use type Cigarette 02/21/25 08:55 Thrive Assessment: Date of Thrive Assessment Date Thrive assessed 02/21/25 02/21/25 08:55 Currently or been in a relationship where the following occur: I choose not to answer Narrative Physical Exam General: Well-appearing, in no acute distress. Vital signs: Within normal limits. HEENT: Normocephalic, atraumatic. PERRLA, EOMI. Conjunctiva clear, sclera anicteric. Oropharynx clear, mucous membranes moist. TMs intact bilaterally. Neck: Supple, no lymphadenopathy, no thyromegaly, no JVD or carotid bruits. Cardiovascular: RRR, normal S1/S2, no murmurs, rubs, or gallops. Peripheral pulses 2+ and symmetric. No edema. Respiratory: Lungs clear to auscultation bilaterally, no wheezes, rales, or rhonchi. Normal effort. Abdomen: Soft, non-tender, non-distended. Normoactive bowel sounds. No hepatosplenomegaly, no masses. MSK: Full range of motion, no joint swelling or deformity. Normal gait. Skin: Warm, dry, intact. No rashes, lesions, or pallor. Neuro: Alert and oriented x3. Cranial nerves II-XII intact. Strength 5/5 throughout. Sensation intact. Reflexes 2+ symmetric. Normal coordination and gait. Psych: Appropriate mood and affect. Normal judgment and insight. Patient reports feeling tired due to medication. Positive changes at work noted. Anxiety managed with medication. MRI of thoracic spine scheduled. Coding Level of Care Code Est Pt Level 4 (86552) Diagnoses Mass on back R22.2 Moderate major depression F32.1 Anxiety F41.9 Fatigue R53.83 Assessment & Plan Assessment & Plan (1) Mass on back: Code(s): R22.2 - Localized swelling, mass and lump, trunk Category: Medical (2) Moderate major depression: Code(s): F32.1 - Major depressive disorder, single episode, moderate Category: Medical (3) Anxiety: Code(s): F41.9 - Anxiety disorder, unspecified (4) Fatigue: Code(s): R53.83 - Other fatigue Plan Consent Patient was informed and verbally consented to the use of an ambient scribe for clinic note documentation during this visit. Plan 1. Anxiety - Continue alprazolam as needed until behavioral health consultation is available. - Reduce escitalopram dosage to 5 mg to manage fatigue and reassess efficacy. 2. Fatigue - Monitor fatigue levels after reducing citalopram dosage. 3. Thoracic Spine Issue - Proceed with scheduled MRI of the thoracic spine to evaluate the bump. - Follow-up appointment to discuss MRI results. Discussion Notes During the visit, we discussed the patient's anxiety and fatigue, primarily attributed to escitalopram use. We agreed to reduce the escitalopram dosage to 5 mg to alleviate fatigue while maintaining anxiety management. The patient will continue alprazolam as needed until a behavioral health consultation is available. Additionally, an MRI of the thoracic spine is scheduled to investigate a bump in the area, and a follow-up will be arranged to discuss the results. Patient Instructions - Continue taking alprazolam as needed for anxiety. - Reduce escitalopram dosage to 5 mg and monitor for changes in fatigue. - Attend scheduled MRI appointment for thoracic spine. - Schedule a follow-up appointment to discuss MRI results. Medical Decision Making The decision to reduce the escitalopram dosage was made to address the patient's fatigue while maintaining anxiety control. Alprazolam will be continued as needed until the patient can be seen by behavioral health specialists. The MRI of the thoracic spine is necessary to evaluate the bump and determine any underlying issues. Follow-up will ensure appropriate management based on MRI findings. Total time spent caring for the patient today was 30 minutes. This includes time spent before the visit reviewing the chart, time spent documenting, and time spent reviewing laboratory results, diagnostic imaging, medications, performing a medically necessary evaluation, counseling on diagnoses, care coordination, ordering appropriate tests, ordering appropriate medications, review of tests performed by other providers, reporting test results with the patient, communication with other healthcare providers. Medications: New escitalopram oxalate 5 mg PO DAILY 30 tabs 0RF alprazolam 0.5 mg PO DAILY PRN 20 tabs 0RF anxiety Discontinued escitalopram oxalate Discontinued Reason: Doctor's Order 10 mg PO DAILY 30 tabs 0RF alprazolam Discontinued Reason: Doctor's Order 0.5 mg PO DAILY 10 tabs 0RF anxiety
--- OUTSIDE RECORDS SUMMARY | 2025-02-21 09:25 | XMS_ITS | Patient Health Record ---
Author Organization [facility] Address [address] [place], [place] [phone] Support Name Relationship Address Phone FINN VICK Guarantor Unknown Unavailable Reason For Referral No Information Plan Of Treatment No Information Insurance Providers Payer Name Payer Address Payer Phone Subscriber Number Group Number Insured Name Patient Relationship to Insured Coverage Start Date Coverage End Date [facility] and [facility] [address] [place], [place] [id number] NAVA FINN Self - patient is the insured
== END 2025-02-21 09:07 | disposition home or self-care (01) ==
LOC: HO.HMCFMS 08:48
PROVIDERS: PCP Student in an Organized Health Care Education/Training Program; Visit Provider Student in an Organized Health Care Education/Training Program
DX: R22.2 Localized swelling, mass and lump, trunk (principal); F32.1 Major depressive disorder, single episode, moderate; F41.9 Anxiety disorder, unspecified; R53.83 Other fatigue

== ENCOUNTER → 2025-02-28 15:49 | Outpatient (BNV) | payer OTHER, SELFPAY | PROVIDERS: PCP Student in an Organized Health Care Education/Training Program; Visit Provider Radiology Diagnostic Radiology | DX: R22.2 Localized swelling, mass and lump, trunk (principal) | CPT/HCPCS: 72157 ==

== ENCOUNTER 2025-02-28 15:57 | Outpatient (REF) | payer OTHER, SELFPAY ==
--- NOTE | ~2025-02-28 | MR_ITS ---
EXAMINATION: MR THORACIC SPINE WITHOUT AND WITH CONTRAST CLINICAL INFORMATION: Palpable lump in the left mid thoracic region, superficial COMPARISON: Ultrasound 01/15/2025 TECHNIQUE: MRI of the thoracic spine was obtained using routine sequences with and without contrast. Intravenous contrast: Gadavist 6.5 mL. FINDINGS: There is an ill-defined area in the subcutaneous soft tissues of the posterior lower chest measuring 1.6 x 3.4 cm (AP by transverse). There area is ill-defined on sagittal imaging. It is not encapsulated. It follows fat density on all imaging sequences and does not enhance. No other mass or abnormality is evident. Visualized solid organs in the upper abdomen are unremarkable. Visualized spine is unremarkable. MR/MR thoracic spine wo/w con IMPRESSION: In the region where marker was placed in the posterior lower chest, left midline, there is an ill-defined area measuring 1.5 x 3.4 cm that probably represents prominent superficial subcutaneous adipose tissue or less likely an unencapsulated lipoma. Electronically signed by: Obie Garza MD 02/28/2025 04:44 PM EDT
--- OUTSIDE RECORDS SUMMARY | 2025-02-28 15:59 | XMS_ITS | Patient Health Record ---
Author Organization [employer] Address [address] [place], [place] [id number] Support Name Relationship Address Phone FINN VICK Guarantor Unknown Unavailable Reason For Referral No Information Plan Of Treatment No Information Insurance Providers Payer Name Payer Address Payer Phone Subscriber Number Group Number Insured Name Patient Relationship to Insured Coverage Start Date Coverage End Date [facility] and [facility] [address] [place], [place] [id number] NAVA FINN Self - patient is the insured
== END 2025-02-28 15:58 | disposition home or self-care (01) ==
LOC: HO.MRI 15:57
PROVIDERS: PCP Student in an Organized Health Care Education/Training Program; Visit Provider Student in an Organized Health Care Education/Training Program
DX: R22.2 Localized swelling, mass and lump, trunk (principal)
CPT/HCPCS: 72157; A9585

== ENCOUNTER 2025-03-12 10:28 | Outpatient (AMB) | payer OTHER, SELFPAY ==
--- NOTE | 2025-03-12 10:31 | MHC.PC.OV ---
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 Fatigue: The patient has been experiencing fatigue as a side effect of her medication, for which the dose was recently reduced to 5 mg. She reports feeling less tired since the dose reduction but still experiences some tiredness. She feels the medication is still having a therapeutic effect at the lower dose. offered switching to another SSRI with less fatigue side effect pt refuses and wants to stay on current medication and dose Lipoma: The patient underwent an MRI which revealed the presence of fatty tissue, suggestive of a lipoma. offered General surgery referral she does not want one at this current moment Medications: - Escitalopram, 5 mg, for Anxiety. Diagnostic Results: - MRI: Shows fatty tissue, suggestive of a lipoma. Past Medical History Health Maintenance [facility] Medical History (Updated 02/03/25 @ 14:21 by Daniel Bazzi MD) Mass on back Family History Father No problems noted. Mother High blood pressure Fibromyalgia Hypothyroidism Social History (Updated 03/12/25 @ 10:34 by Dax Aponte CMA) Housing: Apartment Alcohol intake: current Alcohol intake frequency: holidays/special occasions only Patient Tobacco Use Status: Current everyday Tobacco user Tobacco use type: Cigarette Cigarettes Per Day: 6 Substance Use Type: Marijuana service: No Current occupational status: employed Cognitive needs: No Hearing needs: No Vision needs: No Questionnaire Thrive Questionnaire Date Thrive assessed: 01/16/25 I am a: Patient What is your living situation today?: I have a steady place to live Within the past 12 months, did the food you bought not last and you didn't have the money to get more?: I choose not to answer this question Within the past 12 months, did you worry whether your food would run out before you got money to buy more?: I choose not to answer this question Do you have trouble paying for medicines?: I choose not to answer this question Do you have trouble getting transportation to medical appointments?: I choose not to answer this question Do you have trouble paying your heating and electricity bill?: I choose not to answer this question Do you have trouble taking care of your child, family member or friend?: I choose not to answer this question Do you have trouble with day-to-day activities such as bathing, preparing meals, shopping, managing finances, etc.?: No Are you currently unemployed and looking for a job?: I choose not to answer this question Are you interested in more education?: I choose not to answer this question Please select the resources that you would like help with: None Currently or been in a relationship where the following occur: I choose not to answer THRIVE Score: 0 BERT-7 AMB Questionnaire BERT-7 Date BERT - 7 assessed: 02/21/25 Source: Developed by Drs. Raj Monzon, Ana Hernandez, Angel Gibson and colleagues, with an educational giuseppe from [employer]. Review of Systems Narrative Review of Systems - General: Reports feeling less tired since a medication dosage reduction, but still has some residual tiredness. 10-point ROS reviewed and negative except as noted in HPI Physical exam (Primary Care) Vital Signs: Last Vital Signs Temp 98.1 F 03/12/25 10:34 Pulse 102 H 03/12/25 10:34 Resp 16 03/12/25 10:34 BP 96/52 L 03/12/25 10:34 Pulse Ox 100 03/12/25 10:34 Oxygen Delivery Method Room Air 03/12/25 10:34 BMI result Body Mass Index 25.8 Tobacco/Smoking Status: Tobacco use Status Tobacco use date assessed 02/21/25 03/12/25 10:32 Patient Tobacco Use Status Current everyday Tobacco 03/12/25 10:34 Tobacco use type Cigarette 03/12/25 10:34 Thrive Assessment: Date of Thrive Assessment Date Thrive assessed 01/16/25 03/12/25 10:32 Currently or been in a relationship where the following occur: I choose not to answer Narrative Physical Exam General: Well-appearing, in no acute distress. Vital signs: Within normal limits. HEENT: Normocephalic, atraumatic. PERRLA, EOMI. Conjunctiva clear, sclera anicteric. Oropharynx clear, mucous membranes moist. TMs intact bilaterally. Neck: Supple, no lymphadenopathy, no thyromegaly, no JVD or carotid bruits. Cardiovascular: RRR, normal S1/S2, no murmurs, rubs, or gallops. Peripheral pulses 2+ and symmetric. No edema. Respiratory: Lungs clear to auscultation bilaterally, no wheezes, rales, or rhonchi. Normal effort. Abdomen: Soft, non-tender, non-distended. Normoactive bowel sounds. No hepatosplenomegaly, no masses. MSK: Full range of motion, no joint swelling or deformity. Normal gait. Skin: Warm, dry, intact. No rashes, lesions, or pallor. Neuro: Alert and oriented x3. Cranial nerves II-XII intact. Strength 5/5 throughout. Sensation intact. Reflexes 2+ symmetric. Normal coordination and gait. Psych: Appropriate mood and affect. Normal judgment and insight. Coding Level of Care Code Est Pt Level 3 (74734) Diagnoses Mass on back R22.2 Moderate major depression F32.1 Nicotine dependence F17.200 Fatigue R53.83 Anxiety F41.9 Assessment & Plan Assessment & Plan (1) Mass on back: Code(s): R22.2 - Localized swelling, mass and lump, trunk Category: Medical (2) Moderate major depression: Code(s): F32.1 - Major depressive disorder, single episode, moderate Category: Medical (3) Nicotine dependence: Code(s): F17.200 - Nicotine dependence, unspecified, uncomplicated Category: Medical (4) Fatigue: Code(s): R53.83 - Other fatigue (5) Anxiety: Code(s): F41.9 - Anxiety disorder, unspecified Plan Consent Patient was informed and verbally consented to the use of an ambient scribe for clinic note documentation during this visit. Plan 1. Anxiety - The patient is feeling less tired on the reduced dose of 5 mg and feels it is still effective. - Plan is to continue the current medication at 5 mg. - If sleepiness becomes a significant side effect, a direct switch to fluoxetine (Prozac) will be considered without the need for titration. 2. 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 - The finding is not concerning at this time. - A referral to general surgery for excision is an option for cosmetic reasons, which the patient declined at this visit. - It was explained that exercise might shrink the lipoma but will not completely remove it if it is encapsulated. Discussion Notes I discussed the patient's medication regimen with her, and she reports feeling less tired since the dose was reduced to 5 mg. She agreed to continue with the 5 mg dose and understands that if sedation becomes an issue, we can switch her directly to fluoxetine. I also reviewed her MRI results, which are consistent with a benign lipoma. I reassured her that it is not a worrisome finding and discussed that while exercise might cause it to shrink, surgical removal is the only definitive way to remove it. I offered a referral to general surgery for cosmetic removal, which she declined at this time. Patient Instructions - Continue your current medication at the 5 mg dose as you are feeling less tired. - If you find the medication makes you too sleepy, contact us to discuss switching to a different medication called fluoxetine (Prozac). - Your recent MRI showed fatty tissue, which is likely a harmless growth called a lipoma. - This is not dangerous and does not need treatment unless it bothers you for cosmetic reasons. - If you decide you want it removed in the future, let us know, and we can provide a referral to a general surgeon. - Please schedule a follow-up appointment as you feel is necessary. Medical Decision Making The patient is a 34-year-old female presenting for follow-up on her medication and to review MRI results. Her chief complaint of fatigue has improved since reducing her medication dose to 5 mg. Given that she feels the medication remains effective with fewer side effects, the decision was made to continue the current 5 mg dose. Fluoxetine was discussed as a future alternative if sedation recurs, as a direct switch is feasible. The MRI result indicates a lipoma, a benign finding not requiring medical intervention. The patient was counseled on the benign nature of the finding and offered a referral to general surgery for cosmetic excision, which she declined at this time. Total time spent caring for the patient today was minutes. This includes time spent before the visit reviewing the chart, time spent documenting, and time spent reviewing laboratory results, diagnostic imaging, medications, performing a medically necessary evaluation, counseling on diagnoses, care coordination, ordering appropriate tests, ordering appropriate medications, review of tests performed by other providers, reporting test results with the patient, communication with other healthcare providers.
[2025-03-12 10:34] VITALS: BP 96/52; PULSE 102; RESP 16; TEMP 36.7; O2SAT 100; BMI 25.8
--- OUTSIDE RECORDS SUMMARY | 2025-03-12 12:33 | XMS_ITS | Patient Health Record ---
Author Organization [employer] Address [address] [place], [place] [phone] Support Name Relationship Address Phone FINN VICK Guarantor Unknown Unavailable Reason For Referral No Information Plan Of Treatment No Information Insurance Providers Payer Name Payer Address Payer Phone Subscriber Number Group Number Insured Name Patient Relationship to Insured Coverage Start Date Coverage End Date [facility] and [facility] [address] [place], [place] [id number] [phone] [id number] NAVA FINN Self - patient is the insured
== END 2025-03-12 10:49 | disposition home or self-care (01) ==
LOC: HO.HMCFMS 10:29
PROVIDERS: PCP Student in an Organized Health Care Education/Training Program; Visit Provider Student in an Organized Health Care Education/Training Program
DX: R22.2 Localized swelling, mass and lump, trunk (principal); F32.1 Major depressive disorder, single episode, moderate; F17.200 Nicotine dependence, unspecified, uncomplicated; R53.83 Other fatigue; F41.9 Anxiety disorder, unspecified